=== PATIENT | female | born 1995 | race Two or more races ===

== ENCOUNTER 2024-12-30 12:56 | Emergency (ER) | payer OTHER ==
[2024-12-30] MEDS ORDERED: IBUPROFEN 600 MG TABLET (FP) PO ONE (14:02)
[2024-12-30] MEDS ORDERED: ACETAMINOPHEN 500 MG TABLET (FP) ONE (14:02)
[2024-12-30] MEDS: IBUPROFEN 600 MG TABLET (FP) PO ONE (14:09)
[2024-12-30] MEDS: ACETAMINOPHEN 500 MG TABLET (FP) PO ONE (14:09)
[2024-12-30 14:11] VITALS: BP 116/70; PULSE 107; RESP 20; TEMP 97.6; BMI 32.1
== END 2024-12-30 14:49 | disposition home or self-care (01) ==
LOC: JERFT 12:56
DX: S06.0X0A Concussion without loss of consciousness, initial encounter (principal); Y00.XXXA Assault by blunt object, initial encounter
CPT/HCPCS: 99283-25